=== PATIENT | male | born 1960 | race Caucasian/White ===

== ENCOUNTER → 2019-07-26 | Outpatient (CLI) | payer BC ==
--- NOTE | 2019-07-26 15:41 | US ---
EXAMINATION TYPE: US bladder DATE OF EXAM: 07/26/2019 COMPARISON: NONE CLINICAL HISTORY: R31.9 hematuria. Pt states hematuria and blood in semen EXAM MEASUREMENTS: Post Void Residual Volume: 109.3 mL Color Doppler performed to assess ureteral jets. Bilateral Jets seen: Yes Normal Post Void Residual (less than 50ml): No IMPRESSION: Urinary bladder demonstrates an abnormal post void residual of 109.3 mL. Urinary bladder appears anechoic. No sonographic mass seen.
== END | disposition home or self-care (01) ==
LOC: RADUSWWP 15:06
PROVIDERS: ATTEND Family Medicine
DX: R93.41 Abnormal radiologic findings on diagnostic imaging of renal pelvis, ureter, or bladder (principal)
CPT/HCPCS: 76857

== ENCOUNTER → 2019-07-30 | Outpatient (CLI) | payer BC ==
--- NOTE | 2019-07-30 08:45 | US ---
EXAMINATION TYPE: US kidneys/renal and bladder DATE OF EXAM: 07/30/2019 COMPARISON: NONE CLINICAL HISTORY: 58-year-old male R31.9 Hematuria. TECHNIQUE: Multiple sonographic images of the kidneys only are obtained. FINDINGS: EXAM MEASUREMENTS: Right Kidney: 12.1 x 6.0 x 6.0 cm Left Kidney:12.1 x 6.9 x 5.7 cm No hydronephrosis on either side. Bladder: complete bladder ultrasound done 4 days prior. The bladder is not scanned on the present exa m. IMPRESSION: No hydronephrosis. The bladder is not scanned on the present study
--- NOTE | 2019-07-31 08:37 | US ---
EXAMINATION TYPE: US prostate transrectal DATE OF EXAM: 07/30/2019 COMPARISON: NONE CLINICAL HISTORY: R31.9 Hematuria. This examination was performed using the transrectal probe. EXAM MEASUREMENTS: Gland Size: 5.3 x 3.4 x 5.0cm Volume: 47.5 Predicted PSA: 5.7 Actual PSA (if available): 0.8 Heterogeneous gland with no obvious mass. Small cyst may be present. There is extensive calcification with shadowing present within the prostat e. This could obscure lesions distal to the calcification. IMPRESSION: 1. No suspicious abnormality identified within the prostate. There is some limitation due to prostate calcification Predicted PSA = volume x 0.12 ng/ml Calculated Volume = 0.5236 x L x W x H
== END | disposition home or self-care (01) ==
LOC: RADUSWWP 07:03
PROVIDERS: ATTEND Family Medicine
DX: R31.9 Hematuria, unspecified (principal)
CPT/HCPCS: 76770; 76872

== ENCOUNTER → 2020-11-25 | Outpatient (CLI) | payer BC ==
--- NOTE | 2020-11-26 08:46 | ECHOS ---
STRESS ECHOCARDIOGRAM DATE OF SERVICE: 11/25/20 LUMASON: INDICATIONS: Dyspnea MEDICATIONS: BASELINE HEART RATE: 79 BASELINE BLOOD PRESSURE: 105/56 MAXIMUM HEART RATE: 148 MAXIMUM BLOOD PRESSURE: 148 85% MPHR: 134 100% MPHR: 158 METS: 7.1 MAXIMUM STAGE REACHED: II TOTAL EXERCISE TIME: 6:00 RESULTS: Baseline rhythm is a sinus mechanism, rate of 79, normal axis and intervals. Nonspecific ST-T wave changes. Baseline blood pressure 105/56 mmHg. The patient exercised on Temo protocol for 6 minutes reaching peak rate 148 beats per minute which is equal to 94% maximum predicted heart rate. Peak blood pressure 182/89 mmHg. Test was terminated secondary to fatigue. There was no chest pain. Electrocardiograph monitoring revealed no evidence of diagnostic ischemic ST deviation. FINDINGS: Baseline echocardiogram revealed normal wall motion. At peak exercise, there was normal wall motion augmentation with no hypokinesis or dyskinesis. CONCLUSION: 1. Average exercise tolerance with nondiagnostic electrocardiograph stress testing secondary to baseline EKG abnormality. 2. Normal stress echocardiogram with no evidence of stress-induced ischemia. MMODL / IJN: [id number] /
== END | disposition home or self-care (01) ==
LOC: RADNMMAIN 11-16 09:38
PROVIDERS: ATTEND Family Medicine
DX: R06.00 Dyspnea, unspecified (principal)
CPT/HCPCS: 93351; Q9950

== ENCOUNTER → 2024-07-03 | Outpatient (CLI) | payer BC ==
--- NOTE | 2024-07-03 08:15 | MM ---
Reason for Exam: Clinical finding. Baseline mammogram. Indicated Problems: Lump or thickening of the right side. Prior Study Comparison: Patient's first Mammogram. No prior studies available for comparison. Tissue Density: The breasts are heterogeneously dense, which may obscure small masses. Findings: Analyzed By CAD. There is extensive subareolar flame-shaped density on the right with overlying palpable marker. A more focal area along the posterior margin on the MLO view does not persist on additional views. There is trace subareolar density on the left. No significant mass, suspicious microcalcification, or other discrete abnormality is seen. Overall Assessment: Incomplete: need additional imaging evaluation, BI-RAD 0 Management: Diagnostic Breast Ultrasound of the right breast. [facility], , 07/03/2024 8:11 AM. Electronically signed and approved by: Nabila Interiano M.D. Radiologist
--- NOTE | 2024-07-03 09:17 | USB ---
Reason for Exam: Clinical finding. Technique: Method: Targeted. Findings: The area of palpable concern of the right breast, the axilla of the right breast and the retroareolar of the right breast were scanned. Right breast ultrasound at the patient's palpable site subareolar and periareolar region. There is flame-shaped hypoechoic area behind the nipple spanning up to 3.8 cm correlating with the mammographic findings and compatible gynecomastia. No significant gynecomastia seen on the contralateral side for comparison. No axillary adenopathy. Overall Assessment: Benign, BI-RAD 2 Management: Clinical Management of the right breast. for the asymmetric gynecomastia. Fairly moderate to severe gynecomastia is seen on the right. Correlate for possible causes. Results were given to the patient verbally at the time of exam. [facility], , 07/03/2024 9:14 AM. Electronically signed and approved by: Nabila Interiano M.D. Radiologist
== END | disposition home or self-care (01) ==
LOC: RADMAMWWP 07:45
PROVIDERS: ATTEND Family Medicine
DX: N63.10 Unspecified lump in the right breast, unspecified quadrant (principal); R92.333 Mammographic heterogeneous density, bilateral breasts; R92.2 Inconclusive mammogram
CPT/HCPCS: 77062; 77066